=== PATIENT | male | born 1975 | race Caucasian/White ===

== ENCOUNTER 2017-01-29 14:23 | Observation (INO) ==
[2017-01-29] MEDS ORDERED: CeFAZolin Pre 2,000 MG/100 ML 2,000 MG/100 ML BAG IVPB ONE (14:56)
[2017-01-29] MEDS ORDERED: Albuterol 2.5 MG/3 ML NEBULIZER IH ONE (14:56)
[2017-01-29] MEDS ORDERED: Ringers Solution, Lactated 1,000 ML IVC SCH (15:00)
--- NOTE | 2017-01-29 15:09 | History & Physical Report ---
Date of Encounter: 01/29/17 Time of Encounter: 15:05 24 Hour HP Update - Instructions Instructions: If the History and Physical is less than 30 days old and was completed prior to A.M. admission and or procedure and has NOT been updated on calendar day of procedure please complete this update prior to performing procedure. - Update Patient reports changes in Medical Condition: No Changes in examination, assessment, or condition: No Changes in Medication: No Preop tests/diagnostics Reviewed: Yes Surgery Remains Indicated: Yes Consent for Planned Operative Procedure(s) Verified: Yes - Pre-Operative Checklist Preoperative Checklist Indicated: Yes Prophylactic Antibiotic Ordered: Yes Home Medications Include Beta Marisa: No Is VTE Prophylaxis Indicated?: Yes
[2017-01-29] MEDS ORDERED: CeFAZolin Pre 3,000 MG/100 ML 3,000 MG/100 ML BAG IVPB ONE (15:12)
[2017-01-29] MEDS ORDERED: Famotidine 20 MG/2 ML VIAL IVP ONE (15:18)
[2017-01-29] MEDS ORDERED: Gabapentin 300 MG CAPSULE PO ONE (15:19)
[2017-01-29] MEDS ORDERED: Acetaminophen IV 1,000 MG/100 ML INFUS..BTL IVPB ONE (15:19)
--- NOTE | 2017-01-29 15:36 | Anesthesia Evaluation PreOp ---
Date of Encounter: 01/29/17 Time of Encounter: 15:30 - Past History Planned Operation: Open Incisional Henia Repair Cardiac History: HTN, Hyperlipidemia Pulmonary History: Smoker MARINE PIPEFITTER History: Denies Any Significant HX Other Medical History: GERD Anesthesia History: No Prior Anesthetic Complications Alcohol Use: none Drug use: none Medications and Allergies Docusate [Colace] 100 mg PO BID 02/28/15 [History] OxyCODONE/APAP 10/325 [Percocet 10/325] 1 each PO Q4-6H PRN 02/28/15 [History] Aspirin/Acetaminophen/Caffeine [Excedrin Migraine Caplet] 1 each PO DAILY PRN [History] Citalopram [CeleXA] 20 mg PO DAILY 01/21/17 [History] Cyclobenzaprine [Flexeril] 10 mg PO TID PRN 01/21/17 [History] Gabapentin [Neurontin] 300 mg PO TID PRN 01/21/17 [History] Lactobacillus Combination No.8 [Adult Probiotic] 1 tab PO DAILY 01/21/17 [ History] Multivit-Minerals/FA/Lycopene [Eq One Daily Men's Tablet] 1 each PO DAILY [History] Omeprazole [PriLOSEC] 20 mg PO DAILY 01/21/17 [History] Promethazine [Phenergan] 25 mg PO Q6HR PRN 01/21/17 [History] Psyllium Husk [Daily Fiber] 0.52 - 1.56 gm PO DAILY 01/21/17 [History] Zolpidem [Ambien] 10 mg PO HS PRN 01/21/17 [History] Allergies morphine Adverse Reaction (Verified 01/21/17 08:20) Vomiting - Meds/Allergy Pre-op Review Medications Reviewed: Yes Allergies Reviewed: Yes Beta Blockers on Current Med List: No Anesthesia Results - Labs Laboratory Tests 01/26/17 14:52 Hgb 15.3 Hct 43.4 Plt Count 199 Anesthesia Exam O2 Sat Height 1.93 m Height 1.93 m Weight 121.563 kg Weight 121.563 kg O2 Sat by Pulse Oximetry 94 Vital Signs Temp Pulse Resp BP Pulse Ox 97.2 F L 85 16 130/88 94 01/29/17 14:50 01/29/17 14:50 01/29/17 14:50 01/29/17 14:50 01/29/17 14:50 Height: 6'4 Weight: 268 lbs NPO (# of Hours): MN Pain Scale: 0 - HEENT Pupil (Motor): Pupils equal, EOMI Mallampati: III Teeth: Normal Oral Opening: Less than or equal to 3 - MARINE PIPEFITTER LOC: Oriented MARINE PIPEFITTER Motor: Normal RUE, Normal LUE, Normal RLE, Normal LLE, Normal Face MARINE PIPEFITTER Sensory: Normal: RUE, LUE, RLE, LLE, Face - Cardiac Rhythm: Regular Murmur: None JVD: No Carotid Bruit: No - Pulmonary Breath Sounds: bilateral Clear Respiratory Effort: Symmetrical Anesthesia Assess/Plan ASA Score: 2 Modified Arnoldo Scale for Level of Consciousness: Cooperative, oriented, and tranquil Anesthetic Plan: General Monitoring Plan: Standard Monitors Recovery Plan: PACU (Discussed GA, agrees to proceed)
[2017-01-29] MEDS ORDERED: *HR* Midazolam HCl 2 MG/2 ML VIAL ONE (16:02)
[2017-01-29] MEDS ORDERED: *HR* FentaNYL (PF) 100 MCG/2 ML VIAL ONE (16:02)
[2017-01-29] MEDS ORDERED: *HR* Propofol 200 MG/20 ML VIAL IVP ONE (16:03)
[2017-01-29] MEDS ORDERED: Lidocaine -MPF 2% 2 ML VIAL ONE (16:04)
[2017-01-29] MEDS ORDERED: *HR* Succinylcholine 200 MG/10 ML VIAL IVP ONE (16:04)
[2017-01-29] MEDS ORDERED: Bupivacaine/EPI 1:200k 0.25%PF 30 ML VIAL ONE (16:39)
[2017-01-29] MEDS ORDERED: Ondansetron 4 MG/2 ML VIAL ONE (17:02)
[2017-01-29] MEDS ORDERED: Dexamethasone 4 MG/ML VIAL ONE (17:02)
[2017-01-29] MEDS ORDERED: EPHEDrine 50 MG/ML VIAL ONE (17:19)
[2017-01-29] MEDS ORDERED: *HR* Promethazine 25 MG/ML VIAL IVP PRN (17:38)
[2017-01-29] MEDS ORDERED: *HR* HYDROmorphone 2 MG/ML SYRINGE ONE (17:44)
[2017-01-29] MEDS ORDERED: Neostigmine Methylsulfate 3 MG/3 ML SYRINGE ONE (17:46)
--- NOTE | 2017-01-29 18:14 | Operative Note ---
Date of procedure: 01/29/17 Pre-op diagnosis: Incisional hernia Post-op diagnosis: other (Complex multiple incisional hernias with small bowel adhesions) Procedure: #1 lysis of adhesions for 1 hour. #2 repair of incisional hernia with 20 x 15 cm mesh Implants: 20 x 15 cm symbotex Anesthesia: FANNIE Surgeon: Edgardo Kraft Estimated blood loss (cc): 75 Specimen: Hernia sac Condition: stable Disposition: PACU Procedure in Detail: After informed consent patient stated he droppings replaced supine position given adequate general endotracheal anesthesia. The abdomen was prepped and draped in sterile fashion utilizing ChloraPrep standard draping techniques. Timeout was taken patient was identified. I opened the midline over the marked area of symptomatic hernia. I entered a complex multilobe hernia sac with adhesed small bowel. Lysis of adhesions was performed. The edges of the fascia were elevated with Alyssa thyroid clamps. Once I made a circumferential dissection was obvious that there was a 1 any defect. There were total of 3 small defects but they were in such way that connecting them was not going to be a reasonable option. I decided to perform a 20 cm x 15 cm Symbotex skirted mesh reinforcement of the midline with closure of all the visible defects. I opened the midline to about 12-13 cm. I then made a circumferential lysis of adhesions which took about 1 hour. I then placed a 20 cm x 15 cm Symbotex mesh and attached this to the anterior abdominal wall with screw tacks. These were all placed in the screw well clear of any small bowel. This gave an excellent technical result from placement with no creases or folds in the mesh. The midline was then closed with interrupted 0 Nurolon. Total blood loss was 75 mL was given excellent technical result and all fascial defects were covered with mesh. The fascia was injected with 10 mL of Marcaine. The subcutaneous tissue was closed with interrupted 2-0 Vicryl and the skin with skin clips. He will be placed in observation for hydration and treatment of his postoperative pain
[2017-01-29] MEDS: *HR* HYDROmorphone (PF) 1 MG/ML SYRINGE IVP PRN ×6 (18:19→23:26)
--- NOTE | 2017-01-29 19:03 | Anesthesia Evaluation Post Op ---
Date of Encounter: 01/29/17 Time of Encounter: 19:00 - Vital Signs Vital Signs: Vital Signs/O2 Sat/Glucose, Most Current Temp Pulse Resp BP Pulse Ox 01/29/17 19:00 97.4 F L 77 16 124/91 93 01/29/17 18:50 97.4 F L 70 16 126/83 93 01/29/17 18:40 97 F L 76 18 123/80 92 01/29/17 18:30 77 16 129/87 94 01/29/17 18:20 76 16 141/88 98 01/29/17 18:10 97 F L 86 20 135/88 98 01/29/17 17:11 97.2 F L 85 16 130/88 94 - Lungs Lungs: Clear Ascult./Percussion - Airway Airway: Non-obstructed - Cardiovascular Regular Rate - Mental Status Mental Status: Alert & Oriented, Answers Appropriately - Pain Pain Scale: 0 - Nausea Vomiting Nausea Vomiting: Not Present - Hydration Hydration: NPO - Discharge PostOp Status: Transfer Patient to floor
[2017-01-29] MEDS ORDERED: Gabapentin 300 MG CAPSULE PO PRN (19:52)
[2017-01-29] MEDS: *HR* Promethazine 25 MG/ML VIAL IVP PRN (23:26)
[2017-01-29] MEDS: ceFAZolin 3,000 MG in D5% in Water 100 ML IVPB SCH (23:31)
[2017-01-30] MEDS: 0.9 % Sodium Chloride 1,000 ML IVC SCH (02:13)
[2017-01-30] MEDS: *HR* HYDROmorphone (PF) 1 MG/ML SYRINGE IVP PRN ×12 (02:14→22:28)
[2017-01-30] MEDS: *HR* OxyCODONE/APAP 5/325 TABLET PO PRN ×4 (02:39→18:43)
[2017-01-30 05:03] LABS: Basophils % 0.2 %; Hematocrit 43.3 % (37.5-50.1); Hemoglobin 15.1 g/dL (12.9-16.9); Immature Granulocytes % 0.5 % (0-4); Lymphocytes # 1.5 K/mcL (0.6-4.6); Lymphocytes % 11.6 %; Mean Corpuscular HGB Conc 34.9 g/dL (31.6-35.5); Mean Corpuscular Hemoglobin 32.6 pg (28.0-33.3); Mean Corpuscular Volume 93.5 fL (83.0-100.0); Mean Platelet Volume 11.4 fL (9.4-12.4); Monocytes # 0.5 K/mcL (0.0-1.3); Neutrophils # 11.1 K/mcL (1.6-8.9); Platelet Count 190 K/mcL (140-400); Red Blood Count 4.63 M/mcL (4.19-5.50); Red Cell Distribution Width 12.4 % (11.5-14.5); Segmented Neutrophils % 83.7 %
[2017-01-30 05:20] LABS: BUN/Creatinine Ratio 16 (6-26); Blood Urea Nitrogen 14 mg/dL (8-26); Carbon Dioxide 25 mEq/L (19-29); Chloride 106 mEq/L (98-109); Glucose 118 mg/dL (70-99); Osmolality,Calculated 288 (280-300); Potassium 4.4 mEq/L (3.5-4.5); Sodium 138 mEq/L (136-145); eGFR For African Americans > 60 (> 60); eGFR For Non-African Americans > 60 (> 60)
[2017-01-30] MEDS: *HR* Promethazine 25 MG/ML VIAL IVP PRN ×3 (05:22→22:28)
[2017-01-30] MEDS: ceFAZolin 3,000 MG in D5% in Water 100 ML IVPB SCH (09:53)
--- NOTE | 2017-01-30 16:12 | General Surgery Progress Note ---
<Evelina Kennedy - Last Filed: 01/30/17 16:42> Date of Encounter: 01/30/17 Time of Encounter: 16:00 - Assessment and Plan (1) Incisional hernia Current Visit: Yes Status: Acute POD #1 of lysis of adhesions for 1 hour and repair of incisional hernia with 20 x 15 cm mesh Continue supportive care Denies vomiting, states nausea. PRN antiemetics per MAR Clear liquids as tolerate. May advance to full liquid in the am if tolerating Discomfort management, increased Percocet to 2 tabs Q4H IV dilaudid for severe pain Added scheduled toradol Q6H for 48 hours Ambulate as tolerated Reinforced the need for ambulation Incentive spirometry Will check am labs Anticipate d/c tomorrow or Thursday pending discomfort and progression Qualifiers: Obstruction and gangrene presence: without obstruction or gangrene Qualified Code(s): K43.2 - Incisional hernia without obstruction or gangrene (2) Pain, acute postoperative Current Visit: Yes Status: Acute POD #1 of lysis of adhesions for 1 hour and repair of incisional hernia with 20 x 15 cm mesh Continue supportive care Discomfort management, increased Percocet to 2 tabs Q4H IV dilaudid for severe pain Added scheduled toradol Q6H for 48 hours Ambulate as tolerated Reinforced the need for ambulation Anticipate d/c tomorrow or Thursday pending discomfort and progression Subjective Patient reports: no new complaints, still having pain, pain is less, tolerating liquids well, voiding w/o difficulty, no flatus, no bowel movement, afebrile Objective Vital Signs - Last 8 Hours Temp Pulse Resp BP Pulse Ox 01/30/17 15:51 97.6 F 61 18 115/75 96 01/30/17 10:34 98.1 F 73 20 104/63 93 Intake and Output 01/30/17 01/30/17 01/30/17 07:59 15:59 23:59 Intake Total 100 / 100 720 / 720 Output Total 0 / 0 Balance 100 / 100 720 / 720 Intake: IV Fluids 100 / 100 Ancef 3,000 MG In 100 / 100 Dextrose 5% 100 ML @ 200 mls/hr IVPB Q8HR [facility] Rx#: [id number] Oral 0 / 0 720 / 720 Output: Urine 0 / 0 Other: Weight 123.6 kg Patient Weight 01/30/17 23:59 Weight 123.6 kg - General physical appearance well developed, well nourished, no distress, moderate pain - Eyes normal ocular movement - ENT normal mucosa, no congestion - Neck Neck exam: no masses, trachea midline - Respiratory normal expansion, normal respiratory effort, clear to auscultation - Cardiovascular Cardiovascular exam: Present: RRR - Abdomen Abdomen: Present: bowel sounds present (faint), soft, non tender Hernia: none - Incision Incision: Present: intact (small amount of shadowing) - Integumentary no rash - Neurologic CN 2-12 grossly intact - Psychiatric oriented to time, oriented to person, oriented to place - Labs 01/30/17 04:34 01/30/17 04:34 Diabetes panel 01/30/17 Range/Units 04:34 Sodium 138 (136-145) mEq/L Potassium 4.4 (3.5-4.5) mEq/L Chloride 106 (98-109) mEq/L Carbon Dioxide 25 (19-29) mEq/L BUN 14 (8-26) mg/dL Creatinine 0.87 (0.72-1.25) mg/dL Glucose 118 H (70-99) mg/dL Calcium 9.0 (8.6-10.8) mg/dL Calcium panel 01/30/17 Range/Units 04:34 Calcium 9.0 (8.6-10.8) mg/dL Pituitary panel 01/30/17 Range/Units 04:34 Sodium 138 (136-145) mEq/L Potassium 4.4 (3.5-4.5) mEq/L Chloride 106 (98-109) mEq/L Carbon Dioxide 25 (19-29) mEq/L BUN 14 (8-26) mg/dL Creatinine 0.87 (0.72-1.25) mg/dL Glucose 118 H (70-99) mg/dL Calcium 9.0 (8.6-10.8) mg/dL Adrenal panel 01/30/17 Range/Units 04:34 Sodium 138 (136-145) mEq/L Potassium 4.4 (3.5-4.5) mEq/L Chloride 106 (98-109) mEq/L Carbon Dioxide 25 (19-29) mEq/L BUN 14 (8-26) mg/dL Creatinine 0.87 (0.72-1.25) mg/dL Glucose 118 H (70-99) mg/dL Calcium 9.0 (8.6-10.8) mg/dL - VTE Documentation of Mechanical Device: Intermittent pneumatic compression device Consult Discharge Plan - Plan Additional Instructions: -No lifting, pulling, pushing, greater than 15 pounds for 2 weeks. -Okay to climb stairs. -May resume driving when you have been off narcotics for 24 hours and you are safe to react in the car. -You may shower beginning tomorrow. Wash the incisions daily with soap and water and pat dry. -No swimming, tough bath, or soaking for 2 weeks. -Return to the office for follow-up as directed. -Report any increase in discomfort or any new fevers greater than 101.5 degrees and signs of infection such as redness, swelling, or drainage from the incisions. Referrals: Aleah Olson CNP [Advanced Practice Nurse] - Chi Watson DO [Primary Care Provider] - Prescriptions: Oxycodone HCl/Acetaminophen [Percocet 10-325 mg Tablet] 1 each PO Q4-6H PRN #30 tablet PRN Reason: Moderate Pain <Swapnil,Edgardo T - Last Filed: 01/30/17 21:06> Date of Encounter: 01/30/17 Objective Vital Signs - Last 8 Hours Temp Pulse Resp BP Pulse Ox 01/30/17 20:12 97.9 F 57 18 111/71 95 01/30/17 19:59 96 01/30/17 15:51 97.6 F 61 18 115/75 96 Intake and Output 01/30/17 01/30/17 01/30/17 07:59 15:59 23:59 Intake Total 100 / 100 720 / 720 580 / 580 Output Total 0 / 0 400 / 400 Balance 100 / 100 720 / 720 180 / 180 Intake: IV Fluids 100 / 100 Ancef 3,000 MG In 100 / 100 Dextrose 5% 100 ML @ 200 mls/hr IVPB Q8HR [facility] Rx#: [id number] Oral 0 / 0 720 / 720 580 / 580 Output: Urine 0 / 0 400 / 400 Other: Weight 123.6 kg Patient Weight 01/30/17 23:59 Weight 123.6 kg - Labs 01/30/17 04:34 01/30/17 04:34 Diabetes panel 01/30/17 Range/Units 04:34 Sodium 138 (136-145) mEq/L Potassium 4.4 (3.5-4.5) mEq/L Chloride 106 (98-109) mEq/L Carbon Dioxide 25 (19-29) mEq/L BUN 14 (8-26) mg/dL Creatinine 0.87 (0.72-1.25) mg/dL Glucose 118 H (70-99) mg/dL Calcium 9.0 (8.6-10.8) mg/dL Calcium panel 01/30/17 Range/Units 04:34 Calcium 9.0 (8.6-10.8) mg/dL Pituitary panel 01/30/17 Range/Units 04:34 Sodium 138 (136-145) mEq/L Potassium 4.4 (3.5-4.5) mEq/L Chloride 106 (98-109) mEq/L Carbon Dioxide 25 (19-29) mEq/L BUN 14 (8-26) mg/dL Creatinine 0.87 (0.72-1.25) mg/dL Glucose 118 H (70-99) mg/dL Calcium 9.0 (8.6-10.8) mg/dL Adrenal panel 01/30/17 Range/Units 04:34 Sodium 138 (136-145) mEq/L Potassium 4.4 (3.5-4.5) mEq/L Chloride 106 (98-109) mEq/L Carbon Dioxide 25 (19-29) mEq/L BUN 14 (8-26) mg/dL Creatinine 0.87 (0.72-1.25) mg/dL Glucose 118 H (70-99) mg/dL Calcium 9.0 (8.6-10.8) mg/dL - Attending Attestation I examined this patient and my medical decision-making was reviewed with the DIRECTOR DRUG/PA/Advanced Practice Nurse/Resident Physician. I agree with the documented findings, disposition and treatment plan as described except to the extent set forth below. The patient is seen and evaluated on morning rounds. Pain control continues to be a challenge. We will work closely with the patient and nursing staff to try and alleviate his discomfort. He is tolerating clear liquid diet. Edgardo Kraft MD FACS
--- NOTE | 2017-01-30 16:36 | Discharge Summary ---
<Evelina Kennedy - Last Filed: 01/30/17 16:44> Date of Encounter: 01/30/17 Time of Encounter: 16:31 - Discharge Diagnosis (1) Incisional hernia Priority: Primary Status: Acute Qualifiers: Obstruction and gangrene presence: without obstruction or gangrene Qualified Code(s): K43.2 - Incisional hernia without obstruction or gangrene (2) Pain, acute postoperative Priority: Secondary Status: Acute - Discharge Medications Prescriptions: Docusate [Colace] 100 mg PO BID #30 capsule Oxycodone HCl/Acetaminophen [Percocet 10-325 mg Tablet] 1 each PO Q4-6H PRN #30 tablet PRN Reason: Moderate Pain Home Medications: Docusate [Colace] 100 mg PO BID 02/28/15 [History] OxyCODONE/APAP 10/325 [Percocet 10/325] 1 each PO Q4-6H PRN 02/28/15 [History] Aspirin/Acetaminophen/Caffeine [Excedrin Migraine Caplet] 1 each PO DAILY PRN [History] Citalopram [CeleXA] 20 mg PO DAILY 01/21/17 [History] Cyclobenzaprine [Flexeril] 10 mg PO TID PRN 01/21/17 [History] Gabapentin [Neurontin] 300 mg PO TID PRN 01/21/17 [History] Lactobacillus Combination No.8 [Adult Probiotic] 1 tab PO DAILY 01/21/17 [ History] Multivit-Minerals/FA/Lycopene [Eq One Daily Men's Tablet] 1 each PO DAILY [History] Omeprazole [PriLOSEC] 20 mg PO DAILY 01/21/17 [History] Promethazine [Phenergan] 25 mg PO Q6HR PRN 01/21/17 [History] Psyllium Husk [Daily Fiber] 0.52 - 1.56 gm PO DAILY 01/21/17 [History] Zolpidem [Ambien] 10 mg PO HS PRN 01/21/17 [History] Oxycodone HCl/Acetaminophen [Percocet 10-325 mg Tablet] 1 each PO Q4-6H PRN #30 tablet 01/30/17 [Rx] Docusate [Colace] 100 mg PO BID #30 capsule 07/09/17 [Rx] Allergies/Adverse Reactions: Allergies morphine Adverse Reaction (Verified 01/21/17 08:20) Vomiting General Surgery Exam Initial Vital Signs Temp Pulse Resp BP Pulse Ox 97.2 F L 85 16 130/88 94 01/29/17 14:50 01/29/17 14:50 01/29/17 14:50 01/29/17 14:50 01/29/17 14:50 Date of admission: 01/29/17 18:02 Primary care physician: Katja Lopez Discharging clinician: Evelyne Kennedy) - Patient Status Disposition: Home, Self-Care Condition: Good Overall status at discharge: patient is progressing back to baseline - Discharge Instructions Follow Up With: Aleah Olson CNP [Advanced Practice Nurse] - 02/12/17 11:00 am Chi Watson DO [Primary Care Provider] - Additional Instructions: -No lifting, pulling, pushing, greater than 15 pounds for 2 weeks. -Okay to climb stairs. -May resume driving when you have been off narcotics for 24 hours and you are safe to react in the car. -You may shower beginning tomorrow. Wash the incisions daily with soap and water and pat dry. -No swimming, tough bath, or soaking for 2 weeks. -Return to the office for follow-up as directed. -Report any increase in discomfort or any new fevers greater than 101.5 degrees and signs of infection such as redness, swelling, or drainage from the incisions. Treatment of left arm thrombophlebitis: warm compresses to forearm (affected area) and elevate arm, would normally recommend NSAIDS but you had a reaction to toradol while in the hospital, therefore will forgo the NSAIDS - Hospital Course Hospital course: Mr. Aguillon is a 41 year old male who presented for incisional hernia repair complicated by adhesion life lists of approximately one hour. The patient reported significant discomfort postoperatively and was admitted for postoperative pain management. His discomfort is controlled with the current regimen. He has ambulating, voiding, and tolerating diet without difficulty. We' ll begin discharge planning with patient follow-up in office on January at 11 :00 am. - Time Spent with Patient Total time spent providing and/or coordinating discharge services: Labs on day of discharge: Labs from last 24 hours 01/30/17 01/30/17 04:34 04:34 WBC 13.2 H D RBC 4.63 Hgb 15.1 Hct 43.3 MCV 93.5 MCH 32.6 MCHC 34.9 RDW 12.4 Plt Count 190 MPV 11.4 Immature Gran % 0.5 Seg Neutrophils % 83.7 Lymphocytes % 11.6 Monocytes % 4.0 Eosinophils % 0.0 Basophils % 0.2 Neutrophils # 11.1 H Lymphocytes # 1.5 Monocytes # 0.5 Eosinophils # 0.0 Basophils # 0.0 Sodium 138 Potassium 4.4 Chloride 106 Carbon Dioxide 25 BUN 14 Creatinine 0.87 Est GFR ( Amer) > 60 Est GFR (Non-Af Amer) > 60 BUN/Creatinine Ratio 16 Glucose 118 H Calculated Osmolality 288 Calcium 9.0 <Sandeep De La Cruz - Last Filed: 02/01/17 09:50> Date of Encounter: 02/01/17 Time of Encounter: 09:50 - Discharge Diagnosis (1) Incisional hernia Priority: Primary Status: Acute Qualifiers: Obstruction and gangrene presence: without obstruction or gangrene Qualified Code(s): K43.2 - Incisional hernia without obstruction or gangrene (2) Pain, acute postoperative Priority: Secondary Status: Acute (3) Thrombophlebitis arm Priority: Secondary Status: Acute General Surgery Exam Initial Vital Signs Temp Pulse Resp BP Pulse Ox 97.2 F L 85 16 130/88 94 01/29/17 14:50 01/29/17 14:50 01/29/17 14:50 01/29/17 14:50 01/29/17 14:50 - General physical appearance no distress, obese - Eyes normal ocular movement - Neck trachea midline - Respiratory normal respiratory effort, clear to auscultation - Cardiovascular Cardiovascular exam: Present: RRR - Abdomen Abdomen general surgery: Present: bowel sounds present, soft, non tender, wound (midline incision c/d/i. Bev present with no dehiscence. No erythema or drainage noted) - Incision Incision: Present: clean and dry, intact - Neurologic Present: CN 2-12 grossly intact - Psychiatric Psychiatric general surgery: Present: A&Ox3, appropriate, oriented to person - Additional Findings Vital Signs Temp Pulse Resp BP Pulse Ox 02/01/17 07:18 97.4 F L 61 16 122/82 93 01/31/17 23:16 98.2 F 66 15 121/72 94 01/31/17 19:35 97.5 F L 66 16 116/65 92 01/31/17 10:27 97.5 F L 58 16 117/69 90 Intake and Output 01/31/17 02/01/17 02/01/17 23:59 07:59 15:59 Intake Total 408 / 408 832 / 832 477 / 477 Output Total 0 / 0 725 / 725 Balance 408 / 408 107 / 107 477 / 477 Intake: IV Fluids 168 / 168 832 / 832 237 / 237 0.9 % Sodium Chloride 1, 168 / 168 832 / 832 237 / 237 000 ML @ 75 mls/hr IVC . [id number] [facility] Rx#: [id number] Oral 240 / 240 240 / 240 Output: Urine 0 / 0 725 / 725 Other: Meal Dinner Breakfast Percent of Meal Consumed 100% 100% # Bowel Movements 0 Date of admission: 01/29/17 18:02 Primary care physician: Katja Lopez - Patient Status Overall status at discharge: patient is progressing back to baseline - Hospital Course Hospital course: Mr. Aguillon is a 41 year old male who presented for incisional hernia repair complicated by adhesion life lists of approximately one hour. The patient reported significant discomfort postoperatively and was admitted for postoperative pain management. His discomfort is controlled with the current regimen. He has ambulating, voiding, and tolerating diet without difficulty. We' ll begin discharge planning with patient follow-up in office on February 12 at 11: 00 am. - Time Spent with Patient Total time spent providing and/or coordinating discharge services: <Evelyne Johnson - Last Filed: 02/01/17 11:41> Date of Encounter: 02/01/17 Time of Encounter: 12:00 - Discharge Diagnosis (1) Incisional hernia Priority: Primary Status: Acute Qualifiers: Obstruction and gangrene presence: without obstruction or gangrene Qualified Code(s): K43.2 - Incisional hernia without obstruction or gangrene (2) Thrombophlebitis arm Priority: Secondary Status: Acute General Surgery Exam Initial Vital Signs Temp Pulse Resp BP Pulse Ox 97.2 F L 85 16 130/88 94 01/29/17 14:50 01/29/17 14:50 01/29/17 14:50 01/29/17 14:50 01/29/17 14:50 - General physical appearance well developed, well nourished, no distress, obese - Eyes PERRL, normal ocular movement - ENT normal mucosa, normocephalic - Neck trachea midline - Respiratory normal respiratory effort, clear to auscultation - Cardiovascular Cardiovascular exam: Present: RRR - Abdomen Abdomen general surgery: Present: bowel sounds present, soft, tender ( appropriate post op tenderness) - Incision Incision: Present: clean and dry, intact - Integumentary Integumentary general surgery: Present: warm and dry, no abnormal pigmentation - Neurologic Present: CN 2-12 grossly intact - Musculoskeletal Present: normal posture - Psychiatric Psychiatric general surgery: Present: A&Ox3, speech is normal Date of admission: 01/29/17 18:02 Primary care physician: Katja Lopez Discharging clinician: Evelyne Johnson Anticipated date of discharge: 02/01/17 - Diet and Activity Activity: increase activity as tolerated Diet: advance to your usual diet - Hospital Course Hospital course: Mr. Aguillon is a 41 year old male who developed a left arm thrombophlebitis. Warm compresses and arm elevation instituted. He had a reaction to toradol while in the hospital so no ibprofens were started. - Time Spent with Patient Total time spent providing and/or coordinating discharge services:
[2017-01-30] MEDS: Ketorolac 15 MG/ML VIAL IVP SCH (18:42)
[2017-01-30] MEDS: *HR* Heparin 5,000 UNIT/ML VIAL SQ SCH (18:42)
[2017-01-30] MEDS: Ondansetron 4 MG/2 ML VIAL IVP PRN (20:21)
[2017-01-31] MEDS: Ketorolac 15 MG/ML VIAL IVP SCH ×2 (00:21→05:38)
[2017-01-31] MEDS: *HR* OxyCODONE/APAP 5/325 TABLET PO PRN ×5 (00:26→22:08)
[2017-01-31] MEDS: 0.9 % Sodium Chloride 1,000 ML IVC SCH ×3 (05:15→20:05)
[2017-01-31] MEDS: *HR* Heparin 5,000 UNIT/ML VIAL SQ SCH ×2 (05:19→17:51)
[2017-01-31] MEDS: *HR* HYDROmorphone (PF) 1 MG/ML SYRINGE IVP PRN (05:19)
[2017-01-31 05:43] LABS: Hematocrit 38.8 % (37.5-50.1); Hemoglobin 13.1 g/dL (12.9-16.9); Mean Corpuscular HGB Conc 33.8 g/dL (31.6-35.5); Mean Corpuscular Hemoglobin 32.8 pg (28.0-33.3); Mean Platelet Volume 10.9 fL (9.4-12.4); Platelet Count 139 K/mcL (140-400); Red Cell Distribution Width 12.2 % (11.5-14.5)
[2017-01-31 05:56] LABS: BUN/Creatinine Ratio 20 (6-26); Blood Urea Nitrogen 19 mg/dL (8-26); Calcium 8.3 mg/dL (8.6-10.8); Carbon Dioxide 25 mEq/L (19-29); Chloride 105 mEq/L (98-109); Glucose 81 mg/dL (70-99); Osmolality,Calculated 287 (280-300); Sodium 138 mEq/L (136-145); eGFR For African Americans > 60 (> 60); eGFR For Non-African Americans > 60 (> 60)
[2017-01-31 06:13] LABS: Potassium 4.1 mEq/L (3.5-4.5)
--- NOTE | 2017-01-31 15:11 | General Surgery Progress Note ---
Date of Encounter: 01/31/17 Time of Encounter: 15:08 - Assessment and Plan (1) Incisional hernia Current Visit: Yes Status: Acute post op open incisional hernia repair advance diet to clears awaiting return bowel function start home meds percocet for pain Qualifiers: Obstruction and gangrene presence: without obstruction or gangrene Qualified Code(s): K43.2 - Incisional hernia without obstruction or gangrene (2) Thrombophlebitis arm Current Visit: Yes Status: Acute patient seemed to have a reaction to toradol last night -was stopped therefore will not give anti-inflammatory warm compresses to area no erythema, is a little swollen and tender US LUE report reviwed Subjective Patient reports: no new complaints, feels better, still having pain, pain is less, tolerating liquids well, no flatus, no bowel movement, afebrile, other ( left antecubital fossa pain, "knot") Objective Vital Signs - Last 8 Hours Temp Pulse Resp BP Pulse Ox 01/31/17 10:27 97.5 F L 58 16 117/69 90 Intake and Output 01/30/17 01/31/17 01/31/17 23:59 07:59 15:59 Intake Total 820 / 820 240 / 240 480 / 480 Output Total 400 / 400 0 / 0 425 / 425 Balance 420 / 420 240 / 240 55 / 55 Intake: Oral 820 / 820 240 / 240 480 / 480 Output: Urine 400 / 400 0 / 0 425 / 425 Other: Meal Lunch Percent of Meal Consumed 0% # Voids 2 # Bowel Movements 0 0 Weight 123.8 kg Patient Weight 01/31/17 23:59 Weight 123.8 kg - General physical appearance well developed, well nourished, no distress - Eyes PERRL, normal ocular movement - ENT normal mucosa, normocephalic - Neck Neck exam: trachea midline - Respiratory normal expansion, clear to auscultation - Cardiovascular Cardiovascular exam: Present: RRR - Abdomen Abdomen: Present: bowel sounds present, soft, tender (appropriate post op tenderness) - Incision Incision: Present: clean and dry, intact - Integumentary no rash, no growths - Neurologic CN 2-12 grossly intact - Musculoskeletal normal gait, normal posture - Psychiatric oriented to time, oriented to person, oriented to place, memory intact - Labs 01/31/17 04:56 01/31/17 04:56 Short CBC 01/31/17 Range/Units 04:56 WBC 9.0 (4.3-11.1) K/mcL Hgb 13.1 D (12.9-16.9) g/dL Hct 38.8 (37.5-50.1) % Plt Count 139 L (140-400) K/mcL BMP 01/31/17 Range/Units 04:56 Sodium 138 (136-145) mEq/L Potassium 4.1 (3.5-4.5) mEq/L Chloride 105 (98-109) mEq/L Carbon Dioxide 25 (19-29) mEq/L BUN 19 (8-26) mg/dL Creatinine 0.96 (0.72-1.25) mg/dL Glucose 81 (70-99) mg/dL Calcium 8.3 L (8.6-10.8) mg/dL Vital Signs Temp Pulse Resp BP Pulse Ox 01/31/17 10:27 97.5 F L 58 16 117/69 90 01/31/17 06:52 97.7 F 58 16 116/72 90 01/31/17 03:36 97.5 F L 63 18 106/66 95 01/30/17 23:53 97.7 F 66 17 105/61 94 01/30/17 20:12 97.9 F 57 18 111/71 95 01/30/17 19:59 96 01/30/17 15:51 97.6 F 61 18 115/75 96 Intake and Output 01/30/17 01/31/17 01/31/17 23:59 07:59 15:59 Intake Total 820 / 820 240 / 240 480 / 480 Output Total 400 / 400 0 / 0 425 / 425 Balance 420 / 420 240 / 240 55 / 55 Intake: Oral 820 / 820 240 / 240 480 / 480 Output: Urine 400 / 400 0 / 0 425 / 425 Other: Meal Lunch Percent of Meal Consumed 0% # Voids 2 # Bowel Movements 0 0 Weight 123.8 kg Patient Weight 01/31/17 23:59 Weight 123.8 kg - VTE Documentation of Mechanical Device: Intermittent pneumatic compression device Consult Discharge Plan - Plan Additional Instructions: -No lifting, pulling, pushing, greater than 15 pounds for 2 weeks. -Okay to climb stairs. -May resume driving when you have been off narcotics for 24 hours and you are safe to react in the car. -You may shower beginning tomorrow. Wash the incisions daily with soap and water and pat dry. -No swimming, tough bath, or soaking for 2 weeks. -Return to the office for follow-up as directed. -Report any increase in discomfort or any new fevers greater than 101.5 degrees and signs of infection such as redness, swelling, or drainage from the incisions. Referrals: Aleah Olson CNP [Advanced Practice Nurse] - 02/12/17 11:00 am Chi Watson DO [Primary Care Provider] - Prescriptions: Oxycodone HCl/Acetaminophen [Percocet 10-325 mg Tablet] 1 each PO Q4-6H PRN #30 tablet PRN Reason: Moderate Pain
[2017-01-31] MEDS: Ondansetron 4 MG/2 ML VIAL IVP PRN (18:34)
[2017-01-31] MEDS: *HR* Promethazine 25 MG/ML VIAL IVP PRN (23:05)
[2017-02-01] MEDS: 0.9 % Sodium Chloride 1,000 ML IVC SCH (05:30)
[2017-02-01] MEDS: *HR* OxyCODONE/APAP 5/325 TABLET PO PRN (06:16)
[2017-02-01] MEDS: *HR* Heparin 5,000 UNIT/ML VIAL SQ SCH (06:17)
[2017-02-01 10:47] VITALS: BP 117/71
--- NOTE | 2017-02-01 13:23 | Venous Imaging Report ---
UE Venous Duplex Patient Name:Bruce Aguillon Order Number:[id number] Procedure Date:01/31/2017 Date:1975Age:41 yrs Gender:Male Location:[facility] Room #: 3a45 Shank Skinner:José Miguel Ruiz RDCS Referring MD:Evelyne Johnson MD Reading MD:Cj Ybarra MD Primary Indications:Swelling of limb Secondary Indications: Impressions: Normal left upper extremity deep venous exam. Acute superficial venous thrombosis is present in the left cephalic vein. Normal contralateral subclavian vein. Recommendations: After imaging the patient returned to their room. Test completed on 01/31/2017 at 12:17:12 pm. Findings Venous Duplex Results: Right: Venous imaging of the upper extremity reveals full patency and normal vessel compressibility of the right subclavian. Doppler signals in the evaluated veins were normal. Left: Venous imaging of the upper extremity reveals full patency and normal vessel compressibility of the left jugular, left subclavian, left axillary, left brachial, left cephalic, left cephalic upper arm, left basilic, left basilic upper arm, left basilic forearm, left radial and left ulnar. Doppler signals in the evaluated veins were normal. There is an acute occlusive thrombus seen in the left cephalic forearm. It demonstrates an incompressible vein. Flow was absent and it did not augment. Prior Study: No prior study available for comparison. Upper Extremity Venous Duplex Side Vein Compress Spontaneous Flow Augment Left Jugular Normal Yes Phasic Yes Left Subclavian Normal Yes Phasic Yes Left Axillary Normal Yes Phasic Yes Left Brachial Normal Yes Phasic Yes Left Cephalic Normal Yes Phasic Yes Left Cephalic Upper Arm Normal Yes Phasic Yes Left Cephalic Forearm None no Absent no Left Basilic Normal Yes Phasic Yes Left Basilic Upper Arm Normal Yes Phasic Yes Left Basilic Forearm Normal Yes Phasic Yes Left Radial Normal Yes Phasic Yes Left Ulnar Normal Yes Phasic Yes Right Subclavian Normal Yes Phasic Yes Updated by Cj Ybarra MD on 02/01/2017 1:18:53 PM electronically signed on 02/01/2017 1:19:32 PM with status of Final
== END 2017-02-01 12:26 | disposition home or self-care (01) ==
LOC: SAMDAY 14:23 → 3ANU 14:23 → SAMDAY 19:32
PROVIDERS: ADMIT Surgery; ATTEND Surgery